=== PATIENT | female | born 1935 | race Caucasian/White ===

== ENCOUNTER 2018-12-03 14:03 | Inpatient (IN) ==
[2018-12-03 14:50] LABS: BASO# 0.02 X1000 (0.0-0.2); BASO% 0.2 % (0.0-0.8); EOS# 0.15 X1000 (0.0-0.7); EOS% 1.6 % (0.0-10.0); HEMATOCRIT 34.4 % (37.0-47.0); HEMOGLOBIN 11.3 g/dL (12.0-16.0); IMM GRAN# 0.02 X1000 (0.0-0.04); IMM GRAN% 0.2 % (0.0-0.5); LYMPH# 1.08 X1000 (1.2-3.4); LYMPH% 11.5 % (20.5-51.1); MCH 29.3 PG (27-31); MCHC 32.8 g/dL (33-37); MCV 89.1 FL (81-99); MONO# 0.75 X1000 (0.11-0.59); NEUT# 7.35 X1000 (1.4-6.5); NEUT% 78.5 % (42.2-75.2); PLT 267 X1000 (130-400); RBC 3.86 XMIL (4.2-5.4); RDW 14.4 % (11.5-14.5); WBC 9.37 X1000 (4.8-10.8)
--- NOTE | 2018-12-03 15:23 | Diag Imaging Result Doc PS360 ---
EXAM: FLAT/UPRIGHT ABD/1 VIEW CHEST HISTORY: constipation TECHNIQUE: Flat and upright with chest, three views COMPARISON: 09/19/2011 FINDINGS: The lungs are well expanded. No infiltrates. The heart is enlarged. No free air beneath the diaphragm. No organomegaly. There is stool in the colon. No bowel obstruction. There are several pelvic phleboliths. Mild scoliosis. IMPRESSION: Mild constipation Electronically signed by Mohamud Jacobs 12/03/2018 3:21 PM
[2018-12-03 15:24] LABS: ALBUMIN 3.2 g/dL (3.5-5.0); CALCIUM 8.5 mg/dL (8.8-10.2); CREATININE 1.1 mg/dL (0.5-0.9); TOTAL BILIRUBIN 0.6 mg/dL (0.20-1.00); TOTAL PROTEIN 7.1 g/dL (6.3-8.3)
--- NOTE | 2018-12-03 15:25 | Diag Imaging Result Doc PS360 ---
EXAM: HAND COMPLETE LEFT HISTORY: hand pain, swelling, redness TECHNIQUE: Left hand, three views COMPARISON: None. FINDINGS: No fracture. No dislocation. Trapezium first metacarpal joint space narrowing. Second and third metacarpal phalangeal joint space narrowing. Interphalangeal joint space narrowing and bone spurring to the thumb. No periosteal reaction. No subluxation. No foreign body. IMPRESSION: Long-standing arthritis. Electronically signed by Mohamud Jacobs 12/03/2018 3:22 PM
[2018-12-03] MEDS ORDERED: KLOR-CON PO ONE (15:42)
--- NOTE | 2018-12-03 15:57 | Extremity Venous Study ---
EXAM: Venous U/S Left Arm HISTORY: redness, swelling to hand TECHNIQUE: Left upper extremity venous Doppler ultrasound COMPARISON: None. FINDINGS: Ultrasound of the veins of the left upper extremity revealed superficial thrombus in the cephalic vein. No deep venous thrombus. IMPRESSION: Superficial venous thrombosis in the left cephalic vein in the proximal forearm. Electronically signed by Mohamud Jacobs 12/03/2018 3:54 PM
[2018-12-03] MEDS ORDERED: CLINDAMYCIN IM ONE (16:08)
[2018-12-03 16:14] LABS: BILIRUBIN URINE NEGATIVE (NEGATIVE); BLOOD URINE 2+ (NEGATIVE); CLARITY VERY CLOUDY (CLEAR); COLOR YELLOW; GLUCOSE URINE NEGATIVE (NEGATIVE); KETONE URINE NEGATIVE (NEGATIVE); LEUKOCYTES URINE 2+ (NEGATIVE); NITRITE URINE POSITIVE (NEGATIVE); PH URINE 6.5; PROTEIN URINE 1+(30 mg/dL) mg/dL (NEGATIVE); SP GRAVITY URINE 1.015; UROBILINOGEN URINE NORMAL
[2018-12-03] MEDS ORDERED: XYLOCAINE-MPF 1% INJ ONE (16:19)
[2018-12-03] MEDS ORDERED: ROCEPHIN IM ONE (16:19)
--- NOTE | 2018-12-03 16:25 | PROVIDER DOCUMENTATION ---
This chart was entered by Velvet Hernández Scribe, acting as scribe for Yumiko Herbert CRNP. HPI-Musculoskeletal Pain/Inj - GENERAL Source: patient - HX OF PRESENT ILLNESS-MUSKULOSKELTAL Quality of Pain: reports: aching (left hand) Severity in ED: moderate Onset/Duration: 3 days ago Timing: still present, getting worse Modifying Factors: improves with: immobilization. worse with: movement, palpation Any recent injury?: No Locality of Occurance: Home Similar Symptoms Previously?: No Recently seen or treated by another doctor?: Yes (11/13 and 11/28) <Yumiko Herbert - Last Filed: 12/03/18 16:23> <Dewayne Vaughn - Last Filed: 12/03/18 17:02> - GENERAL Chief Complaint: Extremity Pain Stated Complaint: ARM SWOLLEN / PAINFUL Time Seen by Provider: 12/03/18 14:18 - HX OF PRESENT ILLNESS-MUSKULOSKELTAL Nature of Presenting Problem: 83 yof presents to the ed with c/io left hand pain with swelling, redness and pain for 3 days. pt sts pulled her up and pain has been present since. pt has been seen recently for diffrent complaints 11/13/18-brain bleed and 11/28/18 UTI. pt sts last BM was 1 week prior and is constipated (Yumiko Herbert) Review of Systems - Adult - REVIEW OF SYSTEMS - ADULT Constitutional: denies: chills, fever Eyes: reports: no symptoms reported Ears, Nose, Mouth & Throat: reports: no symptoms reported Cardiovascular: denies: chest pain, palpitations, syncope Respiratory: denies: cough, shortness of breath, wheezing Gastrointestinal: reports: see HPI, constipation. denies: diarrhea, nausea, vom iting Genitourinary: reports: no symptoms reported Musculoskeletal: reports: see HPI, other (left hand pain). denies: back pain Integumentary: reports: see HPI, other (redness swelling and pain noted to left hand) Neurological: denies: dizziness/vertigo, headache/migraines Psychiatric: reports: no symptoms reported Endocrine: reports: no symptoms reported Hematologic/Lymphatic: reports: no symptoms reported Allergic/Immunologic: reports: no symptoms reported All Other Systems: Reviewed and Negative <Yumiko Herbert - Last Filed: 12/03/18 16:23> Past History - Adult - PAST MEDICAL HISTORY-ADULT Review of Records: reports: Old Records Reviewed, Nursing Assessment Review, Medications Reviewed, Social history reviewed & non-contributory. Major Childhood Illnesses: reports: denies history Cardiovascular: reports: A-Fib, HTN Respiratory: reports: denies history Gastrointestinal: reports: denies history Obstetrical/Gynecological: reports: denies history Genitourinary: reports: denies history Musculoskeletal: reports: denies history Hand Dominance: Right Handed Neurological: reports: cognitive dysfunction, CVA Psychiatric: reports: denies history Endocrine/Immune: reports: denies history Other Conditions: reports: denies history - PRIOR SURGERIES/PROCEDURES Surgical/Procedure History: reports: hysterectomy, hernia repair, joint replacement - IMMUNIZATION STATUS Childhood Immunizations: See Nurse Assessment Flu Vaccine: See Nurse Assessment - FAMILY HISTORY Family History: reviewed, not pertinent - SOCIAL HISTORY Smoking: denies Substance Use: denies Living Situation: family <Yumiko Herbert - Last Filed: 12/03/18 16:23> Physical Exam-Injury Related - Physical Exam-Injury Related Initial Vital Signs Reviewed: Yes General Appearance: appears well, alert, mild distress Eyes: PERRL/EOMI, pink conjunctivae Head, Ears, Nose, Mouth & Throat: normocephalic/atraumatic, moist mucous membranes Neck: non-tender, full range of motion, supple, normal inspection Respiratory: chest non-tender, lungs clear, normal breath sounds Cardiovascular: normal peripheral pulses, regular rate, rhythm Chest/Breast: deferred Abdominal Exam: soft, distended (mild), other (c/o constipation). negative: guarding, rigid, rebound Female Genitalia/Pelvic Exam: deferred Rectal Exam: deferred Hemoccult Exam: deferred Lymphatic: no adenopathy Back Exam: normal inspection, no CVA tenderness, no vertebral tenderness Extremity: normal capillary refill, pelvis stable, erythema (left hand), swelling (left hand), tenderness (left hand) Integumentary: normal color, warm/dry, erythema (left hand), tenderness (left hand) Psych/Mental Status: normal mood/affect, normal thought content, normal thought process, oriented x 3 - Glascow Coma Score Best Eye Response (Mccormick): (4) open spontaneously Best Verbal Response (Jalen): (5) oriented Best Motor Response (Mccormick): (6) obeys commands Jalen Total: 15 <Yumiko Herbert - Last Filed: 12/03/18 16:23> Progress - PLAN OF CARE/RESULTS Result Diagrams: 12/03/18 14:40 12/03/18 14:54 - REASSESSMENT Reassessment #1 Time Reassessed: 15:00 (verbal report from u/s tech, no DVT possible phlebitis in cephalic vein.) Reassessment #2 Time Reassessed: 15:44 (discussed pt with Dr Vaughn, agrees with plan. Pt denies CP, SOB, leg pain. Believe d-dimer to be falsely elevated due to recent illness and hospitalization. Attempted to call Dr Echols twice, with no answer, to run pt by him. ) Reassessment #3 Time Reassessed: 15:54 (reviewed results thus far with pt and family member. Agree with dc home and f/u with Dr Echols on Thursday. Instructed to return to ER if symptoms change, worsen, fever, or streaking, verbalized understanding.) Reassessment #4 Time Reassessed: 16:23 (UA culture grew out E Coli on previous visit, will cover UTI with macrobid) - ULTRASOUND (By Radiology) 1 US Study: Upper Ext Impression: See EMR Report (FINDINGS: Ultrasound of the veins of the left upper extremity revealed superficial thrombus in the cephalic vein. No deep venous thrombus. IMPRESSION: Superficial venous thrombosis in the left cephalic vein in the proximal forearm.) <Yumiko Herbert - Last Filed: 12/03/18 16:23> - PLAN OF CARE/RESULTS Result Diagrams: 12/03/18 14:40 12/03/18 14:54 - CONSULTS/PCP/HOSPITALIST Notification #1 *Consult/PCP/Hospitalist*: Danyelle Hoover Time Discussed: 17:02 Consult Disposition: Will see in ED, Admit <Dewayne Vaughn - Last Filed: 12/03/18 17:02> - PLAN OF CARE/RESULTS Progress/Plan/Lab Results: Vital Signs - 8 hr 12/03/18 14:11 Temperature 98 F Pulse Rate 69 Respiratory Rate 18 Blood Pressure 180/76 O2 Sat by Pulse Oximetry 98 Laboratory Results - last 24 hr 12/03/18 12/03/18 12/03/18 14:40 14:40 14:54 WBC 9.37 RBC 3.86 L Hgb 11.3 L Hct 34.4 L MCV 89.1 MCH 29.3 MCHC 32.8 L RDW Std Deviation 14.4 Plt Count 267 MPV 10.0 Immature Gran % (Auto) 0.2 Neut % (Auto) 78.5 H Lymph % (Auto) 11.5 L [place] % (Auto) 8.0 Eos % (Auto) 1.6 Baso % (Auto) 0.2 Immature Gran # (Auto) 0.02 Neut # (Auto) 7.35 H Lymph # (Auto) 1.08 L [place] # (Auto) 0.75 H Eos # (Auto) 0.15 Baso # (Auto) 0.02 D-Dimer, Quantitative 3.00 H Sodium 134 L Potassium 3.0 L Chloride 97 L Carbon Dioxide 25 Anion Gap 12 BUN 31 H Creatinine 1.1 H Estimated GFR/1.73 m2 48 BUN/Creatinine Ratio 28 Glucose 165 H Calculated Osmolality 278 Calcium 8.5 L Total Bilirubin 0.60 AST 14 ALT 9 L Alkaline Phosphatase 77 Total Protein 7.1 Albumin 3.2 L Globulin 4.0 Albumin/Globulin Ratio 1.0 Lipase 9 L Urine Source Urine Color Urine Clarity Urine pH Ur Specific [place] Urine Protein Urine Ketones Urine Blood Urine Nitrite Urine Bilirubin Urine Urobilinogen Urine Microscopic RBC Urine WBC Urine Microscopic WBC Ur Epithelial Cells Urine Crystals Urine Bacteria Urine Casts Urine Yeast Urine Glucose 12/03/18 15:54 WBC RBC Hgb Hct MCV MCH MCHC RDW Std Deviation Plt Count MPV Immature Gran % (Auto) Neut % (Auto) Lymph % (Auto) [place] % (Auto) Eos % (Auto) Baso % (Auto) Immature Gran # (Auto) Neut # (Auto) Lymph # (Auto) [place] # (Auto) Eos # (Auto) Baso # (Auto) D-Dimer, Quantitative Sodium Potassium Chloride Carbon Dioxide Anion Gap BUN Creatinine Estimated GFR/1.73 m2 BUN/Creatinine Ratio Glucose Calculated Osmolality Calcium Total Bilirubin AST ALT Alkaline Phosphatase Total Protein Albumin Globulin Albumin/Globulin Ratio Lipase Urine Source CLEAN CATCH Urine Color YELLOW Urine Clarity VERY CLOUDY A Urine pH 6.5 Ur Specific [place] 1.015 Urine Protein 1+(30 mg/dL) A Urine Ketones NEGATIVE Urine Blood 2+ A Urine Nitrite POSITIVE A Urine Bilirubin NEGATIVE Urine Urobilinogen NORMAL Urine Microscopic RBC 10-20 A Urine WBC 2+ A Urine Microscopic WBC TNTC A Ur Epithelial Cells >10 A Urine Crystals NONE SEEN Urine Bacteria 4+ Urine Casts NONE SEEN Urine Yeast NONE SEEN Urine Glucose NEGATIVE Orders Category Date Time Status FLAT/UPRIGHT ABD/1 VIEW CHEST [RAD] Stat Exams 12/03/18 14:25 Completed HAND COMPLETE LEFT [RAD] Stat Exams 12/03/18 14:25 Completed CBC WITH DIFF [HEME] Stat Lab 12/03/18 14:40 Completed COMPREHENSIVE METABOLIC PANEL [CHEM] Stat Lab 12/03/18 14:54 Completed D-DIMER [COAG] Stat Lab 12/03/18 14:40 Completed LIPASE [CHEM] Stat Lab 12/03/18 14:[address] W/POSS RFLX CULT [URINALYSIS] Stat Lab 12/03/18 15:54 Completed URINE CULTURE [RM] Routine Lab 12/03/18 16:36 Ordered CefTRIAXONE [Rocephin] Med 12/03/18 16:19 Discontinued 1 gm IM NOW ONE Clindamycin Med 12/03/18 16:08 Discontinued 600 mg IM NOW ONE Lidocaine 1% Pf [Xylocaine-Mpf 1%] Med 12/03/18 16:19 Discontinued 5 ml INJ NOW ONE Potassium Chloride E.r. [Klor-Con] Med 12/03/18 15:42 Discontinued 40 meq PO NOW ONE US [Venous U/S Left Arm] Stat Ther 12/03/18 14:28 Completed Departure - Departure Date of Disposition Decision: 12/03/18 Time of Disposition Decision: 16:23 Certified Medical Emergency: Emergent - Critical Care Note This patient required my direct & personal management of CC.: No <Yumiko Herbert - Last Filed: 12/03/18 16:23> - Departure Certified Medical Emergency: Emergent - Critical Care Note This patient required my direct & personal management of CC.: No <Dewayne Vaughn - Last Filed: 12/03/18 17:02> - Departure DIAGNOSIS: Superficial thrombophlebitis Cellulitis Qualifiers: Site of cellulitis: extremity Site of cellulitis of extremity: upper extremity Laterality: left Qualified Code(s): L03.114 - Cellulitis of left upper limb UTI (urinary tract infection) Qualifiers: Urinary tract infection type: site unspecified Hematuria presence: without hematuria Qualified Code(s): N39.0 - Urinary tract infection, site not specified Disposition: ADMITTED INPATIENT 09 Condition: Fair Additional Freetext Instructions: follow up with Dr Echols Thursday return to ER if symptoms change, worsen, fever, or streaking ED Follow Up Instructions: You have been treated by a care provider in the Emergency Department. These instructions are being provided to you so you can have an understanding of how to care for yourself upon discharge. Upon discharge from the Emergency Depar tment, you are responsible for making arrangements for follow-up care by a physician of your choice. Take all prescribed medications as directed. Return to the Emergency Department immediately for any new or worsening symptoms. You may call the Physician Referral phone number at [phone] to obtain a list of Physicians who are taking new patients. Prescriptions: Amoxicillin/Pot Clavulanate [Augmentin] 875 mg PO Q12HR #14 tab Nitrofurantoin Monohyd/M-Cryst [Macrobid 100 mg Capsule] 100 mg PO BID #14 cap Referrals and Follow-Ups: Linda Echols MD [Primary Care Provider] - Discharge Education: Cellulitis, Adult, Phlebitis, [id number] Attestation - Physician/ KELLY Attestation Patient care was provided by Advanced Practice Provider:: Yes Advanced Practice Provider:: Yumiko Herbert Advanced Practice Provider documentation review:: The Mid-level provider documentation, treatment plan and medical decision making was reviewed by the physician who agrees with all treatment and medical decision making by the MLP. The physician spent face to face time with patient:: No Advanced Practice Provider documentation review:: Supervising physician onsite and consulted in the evaluation and care of this patient. The physician did not have a face to face encounter with the patient. <Yumiko Herbert - Last Filed: 12/03/18 16:23> This chart was documented by the indicated scribe, (Velvet Hernández Scribe) and accurately reflects the services I performed and decisions made by me, Yumiko Herbert, CEE, as attested by the provider's signature.
[2018-12-03 16:35] LABS: URINE SOURCE CLEAN CATCH
[2018-12-03 16:36] LABS: URINE BACTERIA 4+ /HFP; URINE CAST NONE SEEN /LPF; URINE CRYSTAL NONE SEEN /HPF; URINE EPITHELIAL CELLS >10 /HPF (<10); URINE WBC TNTC /HPF (<10); URINE YEAST NONE SEEN /HPF
[2018-12-03] MEDS ORDERED: DIFLUCAN PO ONE (18:14)
[2018-12-03] MEDS ORDERED: ZOSYN 3.375 GM in NS 50 ML IV ONE (18:14)
[2018-12-03] MEDS ORDERED: VANCOMYCIN 1 GM/NS 1 GM/250 ML IVPB IV ONE (18:14)
[2018-12-03] MEDS ORDERED: ZOFRAN IV PRN (18:19)
[2018-12-03] MEDS ORDERED: M.V.I.-12 10 ML, FOLIC ACID 1 MG, MAGNESIUM SULFATE 1 GM, THIAMINE 100 MG in NS 1,000 ML IV SCH (18:30)
[2018-12-03] MEDS ORDERED: DIFLUCAN 100 MG/NS 100 MG/50 ML IVPB IV SCH (18:30)
[2018-12-03] MEDS ORDERED: AMBIEN PO PRN (18:52)
[2018-12-03] MEDS ORDERED: APRESOLINE IV PRN (19:03)
--- NOTE | 2018-12-03 19:34 | HISTORY AND PHYSICAL ---
CHIEF COMPLAINT: Left hand redness, swelling and warmth. HISTORY OF PRESENT ILLNESS: This is an 83-year-old female with a history of atrial fibrillation, hypertension, recent brain bleed on 11/12/2018 who presents to the emergency room complaining of swelling, redness, warmth,and pain to her left arm and hand for 3 days. She denies any numbness, coolness to this hand. She reports diagnosed with urinary tract infection on 11/28/2018 has been on Cipro since but she has become gradually weaker during this time. She is constipated with her last bowel movement a week ago, despite taking mag Citrate, She reports having no appetite due to food tasting bad. On inspection of her mouth she is noted to have oral candidiasis seen on her tongue, gums and posterior palate. PAST MEDICAL HISTORY: Hypertension, atrial fibrillation, CVA, recent brain bleed 11/13/2018, prior chronic anticoagulation which was stopped November 13. PAST SURGICAL HISTORY: Hysterectomy, hernia repair, total knee replacement. SOCIAL HISTORY: She denies alcohol, tobacco, or illicit drug use. She lives with her who is active in her care. ALLERGIES: Morphine and sulfa with unknown. HOME MEDICATIONS: A list will be obtained by the nursing staff and once verified review and restart as appropriate. REVIEW OF SYSTEMS: Discussed with the patient with pertinent positives stated in the HPI. She denies any syncope or dizziness, any chest pain or palpitations, shortness of breath or cough, any fever, chills, night sweats, recent weight loss or weight gain, any nausea, vomiting, diarrhea, black or bloody vomitus or stools, hematuria, gross hematuria. PHYSICAL EXAMINATION: GENERAL: This is an 83-year-old female who is lying on the stretcher in the emergency room in no distress. VITAL SIGNS: Blood pressure is 168/77 with a heart rate of 66, respirations are 18, temperature is 98 degrees with room air saturations 95 to 98%. HEENT: Pupils equal, round, react to light. EOMs are intact sclerae anicteric. Head is normocephalic, atraumatic. Mucous membranes are dry with candidiasis noted. NECK: Supple with trachea midline. CARDIOVASCULAR: Regular rate and rhythm. S1 and S2 appreciated. Calves are nontender bilateral with peripheral pulses palpable x4 extremities. PULMONARY: Breath sounds are clear with no increased work of breathing noted. Chest rise, falls symmetric respiration. Chest wall is nontender to palpation. GASTROINTESTINAL: Abdomen is distended, it is soft, is nontender with bowel sounds in all 4 quadrants. GENITOURINARY: She has no CVA or suprapubic tenderness. NEUROLOGIC: She is alert, oriented x3. SKIN: Warm and dry. Left arm is noted with edema, erythema and warmth from just below her elbow down to about mid finger, it is circumferential. She does have cap refill less than 10 seconds on all 5 fingers. She denies a decreased sensation. She does have movement to her wrist, her elbow and all 5 fingers although is limited for pain. There is no drainage noted to this arm or hand. LABS: WBC is 9.3 with hemoglobin 11.3, hematocrit 34.4, platelets 267,000, D- dimer is 3. Sodium 134, potassium 3, BUN 31, creatinine 1.1 with a glucose of 165. Urinalysis reveals nitrite positive with 2+ blood, 10 to 20 microscopic red blood cells, too numerous to count microscopic white blood cells and greater than 10 epithelial cells. Bacteria is 4+. Urine culture is pending from her catheter specimen. Abdominal x-ray reveals mild constipation. No bowel obstruction. Chest x-ray, lungs are well expanded. No infiltrates. Heart is enlarged. No free air beneath the diaphragm. Left hand x-ray reveals longstanding arthritis. Left arm Doppler with superficial venous thrombosis in the left celiac vein in the proximal forearm. ASSESSMENT AND PLAN: 1. Urinary tract infection. In review of the patient's sensitivities from November 28 Escherichia coli specimen patient is susceptible to cefazolin, nitrofurantoin and Zosyn. Start Zosyn IV. We will re-culture urine now and then further antibiotics will be culture driven. 2. Cellulitis left arm. Keep the arm elevated at all times with neurovascular checks every 4 hours, vancomycin and Zosyn antibiotic coverage. 3. Deep vein thrombosis left arm in left cephalic vein in the proximal forearm. At present we cannot give any anticoagulation as the patient has had a brain bleed 11/13/2018 Will check a lower extremity Doppler . 4. Hypokalemia. Potassium was replaced in the emergency room. recheck labs in the morning and replete as appropriate. 5. Acute kidney injury. IV hydration and recheck labs in the morning. 6. History of hypertension. hydralazine 10 mg IV q.4 hours p.r.n. systolic blood pressure greater than 160 as she has had a recent bleed. 7. Oral candidiasis. fluconazole 100 mg IV every 24 hours and Mycelex troches 5 times a day. 8. Constipation. lactulose 30 mL p.o. b.i.d. and monitor. 9. Generalized weakness. fall precautions and will consult Physical Therapy. 10. Moderate protein calorie malnutrition. Boost with meals and at bedtime. banana bag 11. Diarrhea. stool for C difficile, bowel regimen for constipation 12. For gastrointestinal prophylaxis use Prilosec. deep vein thrombosis prophylaxis, SCD Plan was discussed with Dr. Hoover. Further treatments pending hospital course. Dictated by CEE Shafer for Deny Hoover MD cc: CEE Shafer MD MTDD
[2018-12-03] MEDS: LACTULOSE PO SCH (21:59)
[2018-12-03] MEDS: CULTURELLE PO SCH (21:59)
[2018-12-03] MEDS: MYCELEX TROCHE PO SCH (22:06)
[2018-12-04 00:25] LABS: BILIRUBIN URINE NEGATIVE (NEGATIVE); BLOOD URINE 3+ (NEGATIVE); CLARITY VERY CLOUDY (CLEAR); COLOR YELLOW; GLUCOSE URINE NEGATIVE (NEGATIVE); KETONE URINE NEGATIVE (NEGATIVE); LEUKOCYTES URINE 2+ (NEGATIVE); NITRITE URINE POSITIVE (NEGATIVE); PROTEIN URINE 1+(30 mg/dL) mg/dL (NEGATIVE); URINE BACTERIA 2+ /HFP; URINE EPITHELIAL CELLS <10 /HPF (<10); URINE RBC TNTC /HPF (<10); URINE SOURCE CATH; URINE WBC TNTC /HPF (<10); UROBILINOGEN URINE NORMAL
--- NOTE | 2018-12-04 01:14 | HISTORY AND PHYSICAL ---
ADDENDUM: Patient seen and examined by myself. Full note discussed with nurse practitioner. Patient presented to the hospital with left hand redness, swelling, and warmth. She was diagnosed with a superficial clot in that left hand. She also has a pretty significant UTI as well as cellulitis of her hand. We are going to admit her to the hospital, place her on antibiotics. Her D-dimer is elevated. We are going to check an ultrasound of the lower extremities as well as a CTA prior to starting her back on Coumadin, because she is attempting to stay off Coumadin for an upcoming surgery. cc: Deny Hoover MD
[2018-12-04] MEDS: NS 1,000 ML IV SCH ×3 (05:33→16:48)
[2018-12-04 06:01] LABS: BASO# 0.03 X1000 (0.0-0.2); BASO% 0.4 % (0.0-0.8); EOS% 5.3 % (0.0-10.0); HEMATOCRIT 36.4 % (37.0-47.0); HEMOGLOBIN 11.8 g/dL (12.0-16.0); IMM GRAN# 0.02 X1000 (0.0-0.04); IMM GRAN% 0.3 % (0.0-0.5); LYMPH# 1.22 X1000 (1.2-3.4); LYMPH% 16.3 % (20.5-51.1); MCH 29.1 PG (27-31); MCHC 32.4 g/dL (33-37); MCV 89.7 FL (81-99); MONO# 0.71 X1000 (0.11-0.59); MONO% 9.5 % (1.7-9.3); MPV 10.5 FL (7.4-10.4); NEUT# 5.11 X1000 (1.4-6.5); NEUT% 68.2 % (42.2-75.2); PLT 261 X1000 (130-400); RBC 4.06 XMIL (4.2-5.4); RDW 14.5 % (11.5-14.5); WBC 7.49 X1000 (4.8-10.8)
[2018-12-04 06:39] LABS: AGAP 12; BUN 22 mg/dL (8-22); CALCIUM 8.1 mg/dL (8.8-10.2); CHLORIDE 102 mmol/L (98-107); COSMO 277; CREATININE 0.7 mg/dL (0.5-0.9); ESTIMATED GFR > 60; GLUCOSE 93 mg/dL (70-104); POTASSIUM 3.5 mmol/L (3.5-5.1); SODIUM 137 mmol/L (136-145); TCO2 23 mmol/L (25-35)
[2018-12-04] MEDS ORDERED: PRILOSEC PO SCH (07:00)
[2018-12-04] MEDS: MYCELEX TROCHE PO SCH ×3 (09:21→15:21)
[2018-12-04] MEDS: CULTURELLE PO SCH (09:21)
[2018-12-04] MEDS: LACTULOSE PO SCH (09:21)
--- NOTE | 2018-12-04 11:43 | PROGRESS NOTE ---
DATE: 12/04/2018 SUBJECTIVE: Ms. Palmer is feeling better today. The swelling in her hand has decreased greatly. She has less pain. She has more movement to her hand and fingers. OBJECTIVE: Vital Signs: Blood pressure is 170/76 with a heart rate of 52, respirations are 18, temperature is 98.6 degrees oral with room air saturations 98 to 100 percent. Cardiovascular: Regular rate and rhythm. S1 and S2 appreciated. She has no lower extremity edema. Peripheral pulses are palpable x4 extremities with bilateral calves nontender. Pulmonary: Breath sounds are clear with no increased work of breathing noted. Chest rises and falls symmetric with respiration. Gastrointestinal: Abdomen is soft, nontender, nondistended. Bowel sounds in all 4 quadrants. Genitourinary: [place] is patent to bedside bag with cloudy urine draining. Neurologic: She is alert and oriented. Skin: Warm and dry. Erythema and redness to the left hand remain, although they have decreased. Swelling has decreased by about half. She has more movement to her fingers and wrist. Cap refill is less than 3 seconds to all 5 fingers with radial and ulnar pulses palpable. Right hand is elevated on pillows. LABS: WBC is 7.4 with hemoglobin 11.8, hematocrit 36.4, platelets 261. Sodium 137, potassium 3.5, BUN 22, creatinine 0.7 with a glucose of 93. Blood cultures and urine culture are pending. ASSESSMENT AND PLAN: 1. Presumed urinary tract infection. Urine culture is pending. We will continue with Zosyn and further antibiotics will be culture driven. 2. Cellulitis, left arm. Continue with neurovascular checks every 4 hours. Vancomycin and Zosyn for antibiotic coverage. Today is day #2 of antibiotics. 3. Deep vein thrombosis, left arm and left cephalic vein proximal forearm. At present we cannot give any anticoagulation as the patient had a brain bleed November 2018. 4. Elevated D-dimer. We will check a computed tomography angiography pulmonary, as well as lower extremity Doppler. 5. Hypokalemia. We will trend electrolytes, replace as appropriate. 6. Acute kidney injury. This is resolved with hydration. 7. History of hypertension. We are waiting to obtain the patient's medications to restart. We will continue with hydralazine as needed in the interim, 8. Constipation. We will continue with lactulose and monitor intake and output. 9. History of atrial fibrillation. The patient is in sinus rhythm. We will continue telemetry. 10. Generalized weakness. Physical therapy has been consulted. 11. Moderate protein calorie malnutrition. We will continue with Boost with each meal and at bedtime. 12. Diarrhea. The patient had been having diarrhea around constipation. We will continue with a bowel regimen, and we will recheck a KUB in the morning Plan was discussed with Dr. Echols, further treatments. Dictated by CEE Shafer for Linda Echols MD cc: CEE Shafer MD
[2018-12-04] MEDS ORDERED: VANCOMYCIN IV PER PHARMACY MISC SCH (12:00)
[2018-12-04] MEDS ORDERED: ZOSYN 3.375 GM in NS 50 ML IV SCH (12:30)
--- NOTE | 2018-12-04 12:33 | PROGRESS NOTE ---
DATE: 12/04/2018 ADDENDUM: I saw the patient [id number] and fully agree with the assessment and plan of nurse practitioner Laney Renteria. This is an 83-year-old female who has history of atrial fibrillation and unfortunately had subdural hematoma 3 weeks ago after she had a fall. At that time, she was on warfarin which has been held ever since. She presented this time to the hospital with left upper extremity swelling and has been diagnosed as having significant cellulitis for which she has been getting vancomycin along with Zosyn which will be continued. She also has a urine tract infection which should be covered with these antibiotics. Urine culture is pending at this time. She also has a superficial left upper extremity vein thrombosis for which conservative care will be provided. Anticoagulants have been held because of recent subdural hematoma. Further recommendations will be given as per hospital course. cc: Linda Echols MD
[2018-12-04] MEDS ORDERED: VANCOMYCIN 1 GM/NS 1 GM/250 ML IVPB IV SCH (13:00)
--- NOTE | 2018-12-04 13:01 | Diag Imaging Result Doc PS360 ---
CT ANGIOGRM PULMONARY ARTERIES - 12/04/2018 INDICATION: elevated ddimer, left arm DVT TECHNIQUE: Axial CT images were obtained after administering intravenous contrast. Coronal MIP images were generated. COMPARISON: None FINDINGS: There is no pulmonary embolism. The pulmonary arteries and great arteries are patent. Other vessels cannot be evaluated. There is significant cardiomegaly. No adenopathy. 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 No aneurysm. There is some hazy dependent atelectasis bilaterally. Otherwise no infiltrates. There are moderate degenerative changes of the spine. No acute or suspicious bony lesion. IMPRESSION: Significant cardiomegaly. Negative for pulmonary embolism. This exam was performed using automated exposure control, adjustment of mA or kV according to patient size, and/or use of iterative reconstruction technique Electronically signed by Jonathon Babin 12/04/2018 12:59 PM
--- NOTE | 2018-12-04 13:44 | Extremity Venous Study ---
Venous U/S Bilateral Legs - 12/04/2018 INDICATION: DVT left arm, elevated ddimer TECHNIQUE: COMPARISON: None FINDINGS: The veins of the right leg are normal. On the left side, there is a small focal thrombus in the common femoral vein. There is apparent flow around this thrombus. All the other veins of the left leg are fully compressible and normal. IMPRESSION: Focal nonocclusive thrombosis in the left common femoral vein. Electronically signed by Jonathon Babin 12/04/2018 1:42 PM
[2018-12-04 14:04] VITALS: BP 140/69
--- NOTE | 2018-12-04 16:44 | DISCHARGE SUMMARY ---
ADMISSION DATE: 12/03/2018 DISCHARGE DATE: 12/04/2018 DATE OF TRANSFER: 12/04/2018 DISCHARGE DIAGNOSES: 1. Left common femoral vein thrombosis. 2. Urinary tract infection. 3. Left upper extremity cellulitis. 4. Left upper extremity superficial vein thrombosis. 5. Paroxysmal atrial fibrillation. HOSPITAL COURSE: The patient was admitted after she presented with left upper extremity swelling and redness, along with increased warmth. She was diagnosed as having left upper extremity cellulitis and was given IV antibiotics including Zosyn and vancomycin. Her left upper extremity cellulitis has since improved and venous Doppler ultrasound showed left upper extremity superficial vein thrombosis. She was found to have a large venous thrombus in the left common femoral vein after which she was decided to be transferred to [facility] for further care. This is in part because of the patient having subdural hematoma 3 weeks ago for which she was treated at [facility] and at which time warfarin was withheld for a month. The patient's overall condition is hemodynamically stable, but she will be transferred to [facility] and the hospitalist over there, Dr. Mejia, has accepted the patient to be transferred there under his care. Further care will be provided at [facility]. cc: Linda Echols MD
== END 2018-12-04 18:10 | disposition short-term general hospital (02) | DRG 603 ==
LOC: P.ED 14:03 → P.MEDSURG 19:37 → SUATTDRO 19:37
PROVIDERS: ATTEND Internal Medicine